=== PATIENT | female | born 1990 | race Two or more races ===

== ENCOUNTER 2017-09-06 22:40 | Observation (INO) | payer MEDICAID ==
[2017-09-07] MEDS ORDERED: PREN-96 PO (00:45)
== END 2017-09-07 00:10 | disposition home or self-care (01) | DRG 566 ==
LOC: LDRP 22:40
PROVIDERS: ADMIT Specialist; ATTEND Specialist
DX: O62.9 Abnormality of forces of labor, unspecified (principal); Z3A.36 36 weeks gestation of pregnancy
CPT/HCPCS: 59025; 81002; G0378

== ENCOUNTER 2017-09-24 07:45 | Observation (INO) | payer MEDICAID ==
[~2017-09-24 07:45] MED LIST: PREN-96 PO
[2017-09-24 09:00] LABS: Basophils # (auto) 0 uL; Basophils % (auto) 0.5 % (0.0-2.0); Eosinophils # (auto) 0 uL; Eosinophils % (auto) 0.4 % (0.0-7.0); Hematocrit 33.8 % (36.0-46.0); Hemoglobin 11.2 g/dL (12.2-16.2); Lymphocytes % (auto) 25.9 % (10.0-50.0); Mean Corpuscular Hemoglobin 28.5 pg (28.0-32.0); Mean Corpuscular Hgb Conc. 33.3 g/dL (32.0-36.0); Mean Corpuscular Volume 85.6 fL (80.0-100.0); Monocytes # (auto) 0.4 uL; Monocytes % (auto) 4.6 % (0.0-12.0); Neutrophils # (auto) 5.3 uL; Neutrophils % (auto) 68.6 % (37.0-80.0); Nucleated Red Blood Cells % 0.1 %; Platelet Count (auto) 276 10^3/uL (140-450); Red Blood Cells 3.95 10^6/uL (4.0-5.20); Red Cell Distribution Width 13.8 % (11.8-14.3); White Blood Cell 7.8 10^3/uL (4.4-10.8)
[2017-09-25 05:07] LABS: RPR Non Reactive (Non Reactive)
== END 2017-09-24 11:15 | disposition home or self-care (01) | DRG 566 ==
LOC: LDRP 07:45
PROVIDERS: ADMIT Obstetrics & Gynecology; ATTEND Obstetrics & Gynecology
DX: O26.893 Other specified pregnancy related conditions, third trimester (principal); O62.9 Abnormality of forces of labor, unspecified; R10.9 Unspecified abdominal pain; Z3A.39 39 weeks gestation of pregnancy
CPT/HCPCS: 36415; 59025; 76818; 81002; 85025; 86592; G0378

== ENCOUNTER 2017-09-26 16:10 | Observation (INO) | payer MEDICAID | END 2017-09-26 18:00 | disposition home or self-care (01) | DRG 566 | LOC: LDRP 16:10 | PROVIDERS: ADMIT Obstetrics & Gynecology; ATTEND Obstetrics & Gynecology | DX: O40.3XX0 Polyhydramnios, third trimester, not applicable or unspecified (principal); Z3A.31 31 weeks gestation of pregnancy | CPT/HCPCS: 59025; 76818; 81002; G0378 ==

== ENCOUNTER 2017-09-29 09:00 | Observation (INO) | payer MEDICAID ==
[~2017-09-29] VITALS: Ht 165.1 cm; Wt 108.9 kg
== END 2017-09-29 10:40 | disposition home or self-care (01) | DRG 566 ==
LOC: LDRP 09:00
PROVIDERS: ADMIT Obstetrics & Gynecology; ATTEND Obstetrics & Gynecology
DX: O40.3XX0 Polyhydramnios, third trimester, not applicable or unspecified (principal); O62.9 Abnormality of forces of labor, unspecified; Z3A.39 39 weeks gestation of pregnancy
CPT/HCPCS: 59025; 76818; 81002; G0378

== ENCOUNTER 2017-10-01 09:10 | Observation (INO) | payer MEDICAID | END 2017-10-01 10:55 | disposition home or self-care (01) | DRG 566 | LOC: LDRP 09:10 | PROVIDERS: ADMIT Obstetrics & Gynecology; ATTEND Obstetrics & Gynecology | DX: O40.3XX0 Polyhydramnios, third trimester, not applicable or unspecified (principal); O26.893 Other specified pregnancy related conditions, third trimester; O48.0 Post-term pregnancy; O62.9 Abnormality of forces of labor, unspecified; M54.9 Dorsalgia, unspecified; R10.9 Unspecified abdominal pain; Z3A.40 40 weeks gestation of pregnancy | CPT/HCPCS: 59025; 76818; 81002; G0378 ==

== ENCOUNTER 2017-10-03 09:15 | Observation (INO) | payer MEDICAID | END 2017-10-03 11:20 | disposition home or self-care (01) | DRG 566 | LOC: LDRP 09:15 | PROVIDERS: ADMIT Obstetrics & Gynecology; ATTEND Obstetrics & Gynecology | DX: O48.0 Post-term pregnancy (principal); O62.9 Abnormality of forces of labor, unspecified; Z3A.40 40 weeks gestation of pregnancy | CPT/HCPCS: 59025; 76818; 81002; G0378 ==

== ENCOUNTER 2017-10-05 09:55 | Observation (INO) | payer MEDICAID | END 2017-10-05 11:20 | disposition home or self-care (01) | DRG 566 | LOC: INTOOBSV 09:55 → LDRP 09:55 | PROVIDERS: ADMIT Obstetrics & Gynecology; ATTEND Obstetrics & Gynecology | DX: O48.0 Post-term pregnancy (principal); O62.9 Abnormality of forces of labor, unspecified; Z3A.40 40 weeks gestation of pregnancy | CPT/HCPCS: 59025; 76818; 81002; G0378 ==

== ENCOUNTER 2017-10-05 19:05 | Inpatient (IN) | payer MEDICAID ==
[~2017-10-05] VITALS: Ht 165.1 cm; Wt 108.9 kg
[2017-10-05] MEDS ORDERED: LACT. RINGERS/OXYTOCIN 20UNITS 1,000 ML IV SCH (19:17)
[2017-10-05] MEDS ORDERED: METHYLERGONOVINE MALEATE 0.2 MG/ML AMP IM PRN (19:30)
[2017-10-05] MEDS ORDERED: NALBUPHINE HCL 10 MG/1ml INJECTION IV PRN (19:30)
[2017-10-05] MEDS ORDERED: WITCH HAZEL-GLYCERIN PAD TOP PRN (19:30)
[2017-10-05] MEDS ORDERED: LIDOCAINE 2%HCL (LOCAL ANESTH.) INJ 20ML MDV IJ PRN (19:30)
[2017-10-05] MEDS ORDERED: DERMOPLAST 60ML BOTTLE TOP PRN (19:30)
[2017-10-05] MEDS: LACTATED RINGER'S 1,000 ML IV SCH ×2 (19:30→22:28)
[2017-10-05] MEDS ORDERED: PHISODERM TOP SOLN 240ML BTL TOP PRN (19:30)
[2017-10-05] MEDS ORDERED: PROMETHAZINE HCL 25 MG/ML 1ML IM PRN (20:30)
[2017-10-05 20:35] LABS: Basophils # (auto) 0.1 uL; Eosinophils # (auto) 0 uL; Eosinophils % (auto) 0.2 % (0.0-7.0); Hematocrit 32.6 % (36.0-46.0); Hemoglobin 10.8 g/dL (12.2-16.2); Lymphocytes # (auto) 1.6 uL; Lymphocytes % (auto) 18.5 % (10.0-50.0); Mean Corpuscular Hemoglobin 28.3 pg (28.0-32.0); Mean Corpuscular Hgb Conc. 33.2 g/dL (32.0-36.0); Mean Corpuscular Volume 85.4 fL (80.0-100.0); Monocytes # (auto) 0.4 uL; Monocytes % (auto) 4.5 % (0.0-12.0); Neutrophils # (auto) 6.6 uL; Neutrophils % (auto) 75.8 % (37.0-80.0); Nucleated Red Blood Cells % 0.1 %; Platelet Count (auto) 256 10^3/uL (140-450); Red Blood Cells 3.82 10^6/uL (4.0-5.20); Red Cell Distribution Width 14.2 % (11.8-14.3); White Blood Cell 8.7 10^3/uL (4.4-10.8)
[2017-10-05 20:45] LABS: INR 0.92 (0.9-1.15); Partial Thromboplastin Time 26.6 sec (22.64-33.71)
[2017-10-05 20:47] LABS: Albumin 2.6 g/dL (3.4-5.0); BUN/Creatinine Ratio 14.8; Potassium 4.1 mmol/L (3.5-5.1)
[2017-10-05 20:50] LABS: Bilirubin, Total 0.3 mg/dL (0.2-1.0); Total Protein 6.7 g/dL (6.4-8.2)
[2017-10-05 20:59] LABS: Alcohol, Urine < 3.0 mg/dL (0-5); Amphetamine Screen, Urine NEGATIVE (NEGATIVE); Barbiturate Scree,Urine NEGATIVE (NEGATIVE); Benzodiazephine Screen, Urine NEGATIVE (NEGATIVE); Cannabinoid Screen, Urine NEGATIVE (NEGATIVE); Cocaine Screen, Urine NEGATIVE (NEGATIVE); Opiate Scree,Urine NEGATIVE (NEGATIVE); Phencyclidine Screen, Urine NEGATIVE (NEGATIVE)
[2017-10-05] MEDS ORDERED: fentaNYL W ROPIVACAINE 150 ML EPI SCH (23:45)
[2017-10-05] MEDS ORDERED: ePHEDrine SULFATE 50 MG/ML AMP IV ONE (23:45)
[2017-10-05] MEDS ORDERED: LIDOCAINE HCL 2 %PF INJ 10ML AMP IJ ONE (23:45)
[2017-10-05] MEDS ORDERED: NALOXONE HCL 0.4 MG/ML VIAL IV ONE (23:45)
[2017-10-05 23:54] LABS: Urine Bacteria FEW /hpf (None Seen); Urine Blood Negative /uL (Negative); Urine Mucus FEW (None Seen); Urine Specific Gravity 1.016 (1.001-1.035); Urine WBC 1 /hpf (0 - 5)
[2017-10-06] MEDS ORDERED: TERBUTALINE SULFATE 1 MG/ML 1ML VIAL SC ONE ×2 (02:36→02:45)
[2017-10-06] MEDS ORDERED: PROMETHAZINE HCL 25 MG/ML 1ML IV PRN (03:30)
[2017-10-06] MEDS ORDERED: SODIUM CHLORIDE 0.9% 500 ML IV PRN (05:56)
[2017-10-06] MEDS ORDERED: fentaNYL W ROPIVACAINE 150 ML EPI SCH (06:00)
[2017-10-06] MEDS ORDERED: ePHEDrine SULFATE 50 MG/ML AMP IV ONE (06:00)
[2017-10-06] MEDS ORDERED: NALOXONE HCL 0.4 MG/ML VIAL IV ONE (06:00)
[2017-10-06] MEDS ORDERED: IBUPROFEN 600 MG TAB PO PRN (11:15)
[2017-10-06] MEDS: LACTATED RINGER'S 1,000 ML IV SCH (11:17)
[2017-10-06] MEDS ORDERED: LACT. RINGERS/OXYTOCIN 20UNITS 500 ML IV ONE (11:51)
[2017-10-06] MEDS ORDERED: DIPHENOXYLATE W/ATROPINE 2.5 MG TAB PO PRN (12:00)
[2017-10-06] MEDS ORDERED: ONDANSETRON HCL 4 MG/2 ML VIAL IV PRN (12:00)
[2017-10-06] MEDS: IBUPROFEN 600 MG TAB PO PRN ×3 (12:17→22:50)
[2017-10-06 15:30] VITALS: BP 99/57
[2017-10-06] MEDS ORDERED: RHO (D) IMMUNE GLOBULIN 300 MCG INJ IM ONE (17:30)
[2017-10-06 17:54] VITALS: BP 98/53
[2017-10-06 18:57] VITALS: BP 107/61
[2017-10-06] MEDS: ACETAMINOPHEN 325 MG TAB PO PRN (19:20)
[2017-10-06 19:40] VITALS: BP 107/61
[2017-10-06 23:02] VITALS: BP 90/57
[2017-10-07] MEDS: IBUPROFEN 600 MG TAB PO PRN (02:57)
[2017-10-07 02:58] VITALS: BP 99/58
[2017-10-07] MEDS: ACETAMINOPHEN 325 MG TAB PO PRN (05:44)
[2017-10-07 07:00] VITALS: BP 96/68
[2017-10-07] MEDS ORDERED: DOCUSATE CALCIUM 240 MG CAP PO SCH (10:00)
[2017-10-07 11:00] VITALS: BP 123/65
== END 2017-10-07 12:10 | disposition home or self-care (01) | DRG 560 ==
LOC: LDRP 19:05
PROVIDERS: ADMIT Obstetrics & Gynecology; ATTEND Obstetrics & Gynecology
PROC: 10D07Z6 Extraction of Products of Conception, Vacuum, Via Natural or Artificial Opening (ICD-10-PCS; principal; 2017-10-06)
PROC: 0HQ9XZZ Repair Perineum Skin, External Approach (ICD-10-PCS; 2017-10-06)
PROC: 00HU33Z Insertion of Infusion Device into Spinal Canal, Percutaneous Approach (ICD-10-PCS; 2017-10-06)
PROC: 3E0R3BZ Introduction of Anesthetic Agent into Spinal Canal, Percutaneous Approach (ICD-10-PCS; 2017-10-06)
PROC: 10907ZC Drainage of Amniotic Fluid, Therapeutic from Products of Conception, Via Natural or Artificial Opening (ICD-10-PCS; 2017-10-06)
PROC: 30233S1 Transfusion of Nonautologous Globulin into Peripheral Vein, Percutaneous Approach (ICD-10-PCS; 2017-10-06)
DX: O48.0 Post-term pregnancy (principal); O40.3XX0 Polyhydramnios, third trimester, not applicable or unspecified; O69.81X0 Labor and delivery complicated by cord around neck, without compression, not applicable or unspecified; O70.0 First degree perineal laceration during delivery; Z37.0 Single live birth; Z3A.40 40 weeks gestation of pregnancy
CPT/HCPCS: 36415; 51702; 59025; 59409; 62282; 80053; 80307; 81001; 85025; 85610; 85730; 86850; 86870; 86900; 86901; 90384; 96365; 96366; 96374; J2590; J3010